=== PATIENT | male | born 1960 | race Caucasian/White ===

== ENCOUNTER → 2022-11-11 01:28 | Outpatient (CLI) | payer OTHER, SELFPAY ==
--- NOTE | 2022-11-11 | DI.MRI_ITS ---
Exam(s) MR LUMBAR SPINE WO EXAM: MR LUMBAR SPINE WO CLINICAL HISTORY: CHRONIC LOW BACK PAIN,INTERMITTENT FECAL INCONTINENCE,[id number]. TECHNIQUE: Multiplanar multisequence MRI of the Lumbar spine was performed. COMPARISON: There are no plain films available time of this MRI interpretation. FINDINGS: Five lumbar vertebrae are presumed. There is partial fusion across L1-L2 disc space. Conus medullaris is at normal level. There is no evidence of conus mass nor subjacent clumping of in trathecal nerve roots to suggest arachnoiditis. Distal thecal sac and slightly higher than typical, ending at the L5-S1 level. No evidence of Tarlov intra sacral CIS nor other significant findings wit hin the sacral canal. Bones:There are no fractures nor ominous osseous lesions in the lumbar vertebral bodies and visualize d sacrum. With respect to the individual levels... T12-L1: Unremarkable L1-2: There is almost complete elimination of the disc space at this level due to partial fusion acro ss the vertebral bodies this level. There is no disc herniation nor central canal stenosis. No sign ificant foraminal stenosis evident at this level. Mild facet arthrosis. L2-3: This level exhibits mild uniform disc space narrowing. There is mild symmetrical annular bulgi ng at this level. No prominent disc herniation. Central canal dimensions lower normal. There is no evidence of foraminal stenosis at this level. Mild degenerative changes in the facet joints. L3-4: This level exhibits moderate disc space narrowing and an lateral osteophytes, slightly larger o n the left side. There is relatively symmetrical annular bulging at this level. Mild central canal stenosis. Very mild foraminal stenosis bilaterally due to the disc height loss and annular bulging. Mild degenerative changes in the facet joints bilaterally. L4-5: Normal disc height. There is moderate spinal canal stenosis at this level due to a combination of short AP dimensions of the pedicles, mild annular bulging, and significant bilateral facet arthro susan and ligamentum flavum hypertrophy. There is also resultant asymmetric mild left-sided foramina l stenosis and more prominent moderate right-sided foraminal stenosis at this level. L5-S1: This level exhibits relatively uniform moderate decreased disc height.. Some mild annular bul ging without a dominant disc herniation evident. Central canal dimensions lower normal. Exiting landy ral foramen are patent. Mild degenerative changes in the facet joints. Soft tissues: paraspinal soft tissues appear unremarkable. IMPRESSION: 1. Findings as described individually above. 2. There is moderate central canal stenosis at L4-5 level as well as asymmetric foraminal stenosis at this level, more so on the right side. 3. Other findings as above. DATA REPOSITORY:
== END ==
PROVIDERS: Visit Provider Physician Assistant
DX: M48.02 Spinal stenosis, cervical region (principal)
CPT/HCPCS: 72148